=== PATIENT | female | born 1995 | race Caucasian/White ===

== ENCOUNTER 2018-02-09 16:35 | Emergency (ER) | payer OTHER ==
--- NOTE | 2018-02-09 17:14 | PDOC ---
Rapid Medical Evaluation Time Seen by Provider: 02/09/18 17:12 Medical Evaluation: Allergies Allergy/AdvReac Type Severity Reaction Status Date / Time No Known Allergies Allergy Verified 02/09/18 17:12 02/09/18 17:12 I have performed a brief in-person evaluation of this patient. The patient presents with a chief complaint of: + home test with bleeding this am Reports LMP one month ago. , with light lower abdomen and lower back pain Pertinent physical exam findings: NAD skin color good unlabored breathing I have ordered the following: urine hcg, bhcg The patient will proceed to the ED for further evaluation.
[2018-02-09 17:15] VITALS: BP 124/71; PULSE 91; TEMP 98.5; BMI 21.7
[2018-02-09 17:49] LABS: BASO % 0.8 % (0-2.0); HEMATOCRIT 41.2 % (32.4-45.2); HEMOGLOBIN 13.7 GM/dL (10.7-15.3); LYMPH % 33.3 % (8-40); MCH 29.3 pg (25.7-33.7); MCHC 33.3 g/dl (32.0-36.0); MEAN PLT VOLUME 10.2 fl (7.5-11.1); MONO % 9.3 % (3.8-10.2); NEUT % 55.6 % (42.8-82.8); PLATELET COUNT 270 K/MM3 (134-434); RBC 4.68 M/mm3 (3.60-5.2); RDW 13.2 % (11.6-15.6); WHITE BLOOD COUNT 7.9 K/mm3 (4.0-10.0)
--- NOTE | 2018-02-09 19:57 | PDOC ---
History of Present Illness - General History Source: Patient Exam Limitations: No Limitations - History of Present Illness Initial Comments: 02/09/18 19:58 The patient is a 22 year old female with no significant PMH who presents to the emergency department with vaginal bleeding since earlier today. The patient reports that [place] the [place] when she felt herself bleeding. The patient reports that she recently took a positive at home test. The patient reports that this is her 5th ( 5 , para 3) . She reports that she has had 3 c-sections for her births. She states that her youngest child is almost 2 years old. The patient reports that her last menstrual cycle was last month. She states that her menstrual cycles are usually irregular. The patient denies chest pain, shortness of breath, headache and dizziness.She denies fever, chills, nausea, vomit, diarrhea, constipation or urinary symptoms. The patient denies any other complaints. <Ramon Sousa - Last Filed: 02/09/18 19:58> <Allison Toledo - Last Filed: 02/10/18 02:04> - General Chief Complaint: Vaginal Bleeding Stated Complaint: VAGINAL BLEEDING Time Seen by Provider: 02/09/18 17:12 Past History <Ramon Sousa - Last Filed: 02/09/18 19:58> - Past Medical History Asthma: No Cancer: No Cardiac Disorders: No COPD: No Diabetes: No HTN: No Seizures: No Thyroid Disease: No - Reproductive History (#): 5 Para: 3 - Immunization History Immunization Up to Date: Yes - Suicide/Smoking/Psychosocial Hx Smoking Status: No Smoking History: Never smoked Have you smoked in the past 12 months: No Number of Cigarettes Smoked Daily: 0 Hx Alcohol Use: No Drug/Substance Use Hx: No Substance Use Type: None Hx Substance Use Treatment: No <Allison Toledo - Last Filed: 02/10/18 02:04> - Past Medical History Allergies/Adverse Reactions: Allergies Allergy/AdvReac Type Severity Reaction Status Date / Time No Known Allergies Allergy Verified 02/09/18 17:12 Home Medications: Ambulatory Orders NK [No Known Home Medication] 02/09/18 Review of Systems - Review of Systems Able to Perform ROS?: Yes Comments:: 02/09/18 19:59 CONSTITUTIONAL: Absent: fever, chills, diaphoresis, generalized weakness, malaise, loss of appetite HEENT: Absent: rhinorrhea, nasal congestion, throat pain, throat swelling, difficulty swallowing, mouth swelling, ear pain, eye pain, visual Changes CARDIOVASCULAR: Absent: chest pain, syncope, palpitations, irregular heart rate, lightheadedness , peripheral edema RESPIRATORY: Absent: cough, shortness of breath, dyspnea with exertion, orthopnea, wheezing, stridor, hemoptysis GASTROINTESTINAL: Absent: abdominal pain, abdominal distension, nausea, vomiting, diarrhea, constipation, melena, hematochezia GENITOURINARY: present(+) vaginal bleeding. Absent: dysuria, frequency, urgency, hesitancy, hematuria, flank pain, genital pain MUSCULOSKELETAL: Absent: myalgia, arthralgia, joint swelling SKIN: Absent: rash, itching, pallor HEMATOLOGIC/IMMUNOLOGIC: Absent: easy bleeding, easy bruising, lymphadenopathy, frequent infections ENDOCRINE: Absent: unexplained weight gain, unexplained weight loss, heat intolerance, cold intolerance NEUROLOGIC: Absent: headache, focal weakness or paresthesias, dizziness, unsteady gait, seizure, mental status changes, bladder or bowel incontinence PSYCHIATRIC: Absent: anxiety, depression, suicidal or homicidal ideation, hallucinations. <Ramon Sousa - Last Filed: 02/09/18 19:58> *Physical Exam - Vital Signs Last Vital Signs Temp Pulse Resp BP Pulse Ox 98.5 F 91 H 19 124/71 100 02/09/18 17:12 02/09/18 17:12 02/09/18 17:12 02/09/18 17:12 02/09/18 17:12 - Physical Exam Comments: 02/09/18 19:59 GENERAL: Well developed, well nourished. Awake and alert. No acute distress. HEENT: Normocephalic, atraumatic. PERRLA, EOMI. No conjunctival pallor. Sclera are non- icteric. Moist mucous membranes. Oropharynx is clear. NECK: Supple. Full ROM. No JVD. Carotid pulses 2+ and symmetric, without bruits. No thyromegaly. No lymphadenopathy. CARDIOVASCULAR: Regular rate and rhythm. No murmurs, rubs, or gallops. Distal pulses are 2+ and symmetric. PULMONARY: No evidence of respiratory distress. Lungs clear to auscultation bilaterally. No wheezing, rales or rhonchi. ABDOMINAL: Soft. Non-tender. Non-distended. No rebound or guarding. No organomegaly. Normoactive bowel sounds. MUSCULOSKELETAL Normal range of motion at all joints. No bony deformities or tenderness. No CVA tenderness. EXTREMITIES: No cyanosis. No clubbing. No edema. No calf tenderness. SKIN: Warm and dry. Normal capillary refill. No rashes. No jaundice. NEUROLOGICAL: Alert, awake, appropriate. Cranial nerves 2-12 intact. No deficits to light touch and temperature in face, upper extremities and lower extremities. No motor deficits in the in face, upper extremities and lower extremities. Normoreflexic in the upper and lower extremities. Normal speech. Toes are down- going bilaterally. Gait is normal without ataxia. PSYCHIATRIC: Cooperative. Good eye contact. Appropriate mood and affect. <Ramon Sousa - Last Filed: 02/09/18 19:58> - Vital Signs Last Vital Signs Temp Pulse Resp BP Pulse Ox 98.5 F 91 H 19 124/71 100 02/09/18 17:12 02/09/18 17:12 02/09/18 17:12 02/09/18 17:12 02/09/18 17:12 <Allison Toledo - Last Filed: 02/10/18 02:04> ED Treatment Course - LABORATORY CBC & Chemistry Diagram: 02/09/18 17:39 - ADDITIONAL ORDERS Additional order review: Laboratory Results 02/09/18 02/09/18 02/09/18 17:39 17:39 17:39 Beta HCG, Quant 49.0 Urine HCG, Qual Positive Blood Type O POSITIVE Antibody Screen Negative 02/09/18 17:39 RBC 4.68 D MCV 88.0 MCHC 33.3 RDW 13.2 MPV 10.2 Neutrophils % 55.6 D Lymphocytes % 33.3 D Monocytes % 9.3 Eosinophils % 1.0 D Basophils % 0.8 <Ramon Sousa - Last Filed: 02/09/18 19:58> - LABORATORY CBC & Chemistry Diagram: 02/09/18 17:39 - ADDITIONAL ORDERS Additional order review: Laboratory Results 02/09/18 02/09/18 02/09/18 17:39 17:39 17:39 Beta HCG, Quant 49.0 Urine HCG, Qual Positive Blood Type O POSITIVE Antibody Screen Negative 02/09/18 17:39 RBC 4.68 D MCV 88.0 MCHC 33.3 RDW 13.2 MPV 10.2 Neutrophils % 55.6 D Lymphocytes % 33.3 D Monocytes % 9.3 Eosinophils % 1.0 D Basophils % 0.8 - RADIOLOGY Radiology Studies Ordered: Category Date Time Status TRANSVAGINAL US PREG [US] Stat Ultrasound 02/09/18 18:19 Completed <Allison Toledo - Last Filed: 02/10/18 02:04> Medical Decision Making - Medical Decision Making 02/10/18 02:04 Beta-hCG was only 49 transvaginal ultrasound only showed thickened endometrium. Patient however has a follow-up appointment with her CUSTOMER MANAGEMENT SPECIALIST this week and will have repeat beta hCG at that time <Allison Toledo - Last Filed: 02/10/18 02:04> *DC/Admit/Observation/Transfer - Attestations Scribe Attestion: 02/09/18 19:59 Documentation prepared by Ramon Sousa, acting as medical screener for Allison Toledo MD. <Ramon Sousa - Last Filed: 02/09/18 19:58> <Allison Toledo - Last Filed: 02/10/18 02:04> Diagnosis at time of Disposition: Threatened - Discharge Dispostion Disposition: HOME Condition at time of disposition: Stable - Referrals Referrals: Sukhwinder Aggarwal MD [Staff Physician] - - Patient Instructions Printed Discharge Instructions: DI for Vaginal Bleeding During Additional Instructions: keep your appointment with your tester/lift trucker
== END 2018-02-09 20:24 | disposition home or self-care (01) ==
LOC: JER 16:35
DX: O26.891 Other specified pregnancy related conditions, first trimester (principal); O20.0 Threatened abortion; Z3A.00 Weeks of gestation of pregnancy not specified
CPT/HCPCS: 36415; 76817-TC; 84702; 84703; 85025; 86850; 86900; 86901; 99283-25

== ENCOUNTER 2019-07-01 09:03 | Emergency (ER) | payer OTHER ==
[2019-07-01 09:18] VITALS: BMI 24.9
--- NOTE | 2019-07-01 09:41 | PDOC ---
History of Present Illness - General Chief Complaint: Pain, Acute Stated Complaint: STOMACH PAIN Time Seen by Provider: 07/01/19 09:36 History Source: Patient Exam Limitations: No Limitations - History of Present Illness Initial Comments: 07/01/19 09:47 Ms Sales is a 24 yo F who presents to the ER with a complaint of abdominal pain Pt reports that she began feeling ill last night, after dinner time ( approximately 9pm) She was in so much pain that she was unable to sleep last night Pain is described as crampiness, located through out the lower abdomen with radiation to the back, pain is 9/10 Pt denies fevers or chills Pt has noted nausea, no vomiting Pt had a single episode of diarrhea this morning Passing flatus Denies dysuria or hematuria Has noted scant vaginal bleeding Pt is currently sexually active, last time was 1 week ago Pt is currently NOT breast feeding PMH: denies PSH: C section MEDS: denies ALL: NKDA SOCIAL: denies alcohol, drug, cigarette use Review of Systems Constitutional: Fatigue, No: Anorexia, Chills/Rigor, Fever, Night Sweats Eyes: No: Blurry Vision, Diplopia, Loss of Vision, Photophobia ENT: No: Nasal Discharge, Oral Ulcers, Sinus Pain, Sore Throat, Tinnitus Cardiac: No: Chest Pain, Lower Extremity Edema, Orthopnea Respiratory: No: Cough, Hemoptysis, Pleuritic Pain, Shortness of Breath, Sputum Gastrointestinal: Yes: nausea, abdominal pain, one episode of diarrhea No: vomiting Genitourinary: No: Dysuria, Frequency, Hematuria, Urgency Skin: No: Pruritis, Rash Endocrine: No: Change in skin/hair (Bruise on the right of), Loss of Energy, Weight Change Musculoskeletal: No: Arthralgias, Back Pain, Myalgias Neurological: No: Confusion, Dizziness, Numbness of Extremities, Headache, Paresthesias, Vertigo Physical Examination General Appearance: NAD, Appears Comfortable Body Habitus: Normal Vital Signs: HR:93, BP: 106/62, Temp 98.8 Eyes: No: Discharge, Icteric, Pale, Injected, PERRL, EOMI ENT: No: Facial Lymphadenopathy, Sinus Tenderness, Discharge, Nasal Flaring Oropharynx: Mucosa Moist Neck: Supple, No JVD, no Lymphadenopathy Respiratory: CTA B/L, Decreased Breath Sounds Cardiac: RRR, S1/S2, No Murmur, Rub, Gallop Gastrointestinal: Soft, exquisitely tender in the lower abdomen, left and right quadrants, (+) epigastric tenderness, no involuntary guarding or rebound [employer]PER[employer]OR MILL: nml external genitalia, (+) dark blood in the vaginal vault, (+) CMT, + bilateral adnexal tenderness Musculoskeletal: Right Upper Extremity: 5/5 Left Upper Extremity: 5/5 Right Lower Extremity: 4/5 Left Lower Extremity: 4/5 Normal Tone: RUE, RLE, LUE, LLE Back: No CVA Tenderness, mid lower lumbar tenderness Skin: Normal, Warm Neurologic: Mental Status: A&O x 2 Cranial Nerves: II-XII Grossly Intact Babinski: Bilateral-Downgoing Sensation: Intact 07/01/19 10:05 Is this a multiple visit Asthma Patient?: No Past History - Past Medical History Allergies/Adverse Reactions: Allergies Allergy/AdvReac Type Severity Reaction Status Date / Time No Known Allergies Allergy Verified 07/01/19 09:15 Home Medications: Ambulatory Orders Cefpodoxime Proxetil [Vantin -] 100 mg PO BID #20 tablet 07/01/19 Asthma: No Cancer: No Cardiac Disorders: No COPD: No Diabetes: No HTN: No Seizures: No Thyroid Disease: No - Reproductive History (#): 5 Para: 3 - Immunization History Immunization Up to Date: Yes - Psycho Social/Smoking Cessation Hx Smoking Status: No Smoking History: Never smoked Have you smoked in the past 12 months: No Number of Cigarettes Smoked Daily: 0 Hx Alcohol Use: No Drug/Substance Use Hx: No Substance Use Type: None Hx Substance Use Treatment: No *Physical Exam - Vital Signs Last Vital Signs Temp Pulse Resp BP Pulse Ox 98.8 F 93 H 18 106/62 99 07/01/19 09:16 07/01/19 09:16 07/01/19 09:16 07/01/19 09:16 07/01/19 09:16 ED Treatment Course - LABORATORY CBC & Chemistry Diagram: 07/01/19 10:30 07/01/19 10:30 Medical Decision Making - Medical Decision Making 07/01/19 10:20 24 yo F presenting with lower abdominal pain and scant vaginal bleeding Post 4 months No discharge noted on examination 1) Menses 2) unlikely retained products (given pt is 4 months post ) 3) ? PID (no fevers) 4) Appendicitis vs Diverticulitis Will do: Labs US consider CT IVF/Reglan/Tylenol Re Assess 07/01/19 11:12 Laboratory Tests 07/01/19 07/01/19 07/01/19 10:30 10:30 10:45 WBC 16.3 H Hgb 15.2 Hct 44.3 Plt Count 276 Serum , Qual Negative Urine Blood 2+ H Urine Nitrite Positive H Ur Leukocyte Esterase 1+ H Urine WBC (Auto) 3 Urine RBC (Auto) 4 U Epithel Cells (Auto) 1.9 Urine Bacteria (Auto) 4237.0 07/01/19 11:58 Laboratory Tests 07/01/19 10:30 Sodium 139 Potassium 4.1 Chloride 106 Carbon Dioxide 24 BUN 9.2 Creatinine 0.7 Random Glucose 77 07/01/19 12:57 ABD US nml 07/01/19 13:34 TVUS - IUD in place, trace endometrial fluid, nml flow to ovaries Pt unable to stay in the ER for any additional testing Pt states she feels better after tylenol ? beginning of Menses ? UTI Will start Cefpodoxime for UTI Will ask pt to follow up within 2-3 days with dicer machine operator or pmd Discharge - Discharge Information Problems reviewed: Yes Clinical Impression/Diagnosis: UTI (urinary tract infection) Qualifiers: Urinary tract infection type: acute cystitis Hematuria presence: without hematuria Qualified Code(s): N30.00 - Acute cystitis without hematuria Condition: Stable Disposition: HOME - Admission No - Additional Discharge Information Prescriptions: Cefpodoxime Proxetil [Vantin -] 100 mg PO BID #20 tablet Prescription Drug Monitoring Program (I-STOP) results: I-STOP not reviewed - Follow up/Referral Referrals: Young Haji MD [Staff Physician] - - Patient Discharge Instructions Patient Printed Discharge Instructions: DI for Urinary Tract Infection (UTI) Additional Instructions: Ms. Sales thank you for coming in to the ER today Please be sure to take the antibiotics I have prescribed If the pharmacy can not fill your prescription, please have them call the ER I can change it Please monitor yourself for fevers by taking your temperature Please Please follow up with a primary care physician within 2-3 days IF you continue to have pain, please RETURN to the ER You would need a CT scan We have sent a urine culture for you If your culture grows something not covered by your antibiotic, we will call you - Post Discharge Activity Work/Back to School Note: Back to Work
[2019-07-01] MEDS ORDERED: SODIUM CHLORIDE 1,000 ML IV STA (09:52)
[2019-07-01] MEDS ORDERED: METOCLOPRAMIDE HCL INJECTION 10 MG/2 ML VIAL IVPUSH ONE (09:52)
[2019-07-01] MEDS ORDERED: ACETAMINOPHEN 1000 MG/100 ML VIAL (NON FORMULARY) IVPB ONE (09:52)
[2019-07-01] MEDS ORDERED: METOCLOPRAMIDE HCL INJECTION 10 MG/2 ML VIAL ONE ×2 (09:59→10:04)
[2019-07-01] MEDS ORDERED: ACETAMINOPHEN INJECTION 100 ML IVPB ONE ×2 (10:00→10:04)
[2019-07-01 10:51] LABS: BASO % 0.3 % (0-2.0); EOS % 0.8 % (0-4.5); HEMATOCRIT 44.3 % (32.4-45.2); HEMOGLOBIN 15.2 GM/dL (10.7-15.3); LYMPH % 12.2 % (8-40); MCH 30.4 pg (25.7-33.7); MCHC 34.2 g/dl (32.0-36.0); MEAN CELL VOLUME 88.8 fl (80-96); MEAN PLT VOLUME 9.8 fl (7.5-11.1); MONO % 6.9 % (3.8-10.2); NEUT % 79.8 % (42.8-82.8); PLATELET COUNT 276 K/MM3 (134-434); RBC 4.99 M/mm3 (3.60-5.2); RDW 13.6 % (11.6-15.6); WHITE BLOOD COUNT 16.3 K/mm3 (4.0-10.0)
[2019-07-01 11:03] LABS: EPI CELLS 1.9 /HPF (0-5/HPF); HYALINE CASTS 4 /lpf (0-8); PH,URINE 5.5 (5.0-8.0); URINE APPEARANCE CLEAR; URINE BILIRUBIN NEGATIVE (NEGATIVE); URINE COLOR YELLOW; URINE GLUCOSE (UA) NEGATIVE (NEGATIVE); URINE KETONE NEGATIVE (NEGATIVE); URINE LEUK ESTERASE 1+ (NEGATIVE); URINE NITRITE POSITIVE (NEGATIVE); URINE PROTEIN NEGATIVE (NEGATIVE); URINE RBC 4 /hpf (0-4); URINE UROBILINOGEN 0.2 mg/dL (0.2-1.0); URINE WBC 3 /hpf (0-5)
[2019-07-01 11:17] LABS: ALBUMIN 4.5 g/dl (3.4-5.0); BILIRUBIN,TOTAL 1.2 mg/dL (0.2-1); BLOOD UREA NITROGEN 9.2 mg/dL (7-18); CALCIUM 9.8 mg/dL (8.5-10.1); CREATININE 0.7 mg/dL (0.55-1.3); POTASSIUM 4.1 mmol/L (3.5-5.1); TOT PROT 9.1 g/dl (6.4-8.2)
[2019-07-01 13:09] VITALS: BP 114/73; PULSE 78; TEMP 98.1
== END 2019-07-01 13:59 | disposition home or self-care (01) ==
LOC: JER 09:03
PROC: 3E033NZ Introduction of Analgesics, Hypnotics, Sedatives into Peripheral Vein, Percutaneous Approach (ICD-10-PCS; principal; 2019-07-01)
PROC: 3E033GC Introduction of Other Therapeutic Substance into Peripheral Vein, Percutaneous Approach (ICD-10-PCS; 2019-07-01)
PROC: 3E0337Z Introduction of Electrolytic and Water Balance Substance into Peripheral Vein, Percutaneous Approach (ICD-10-PCS; 2019-07-01)
DX: N30.00 Acute cystitis without hematuria (principal)
CPT/HCPCS: 36415; 76705-TC; 76830-TC; 80053; 81003; 82150; 83690; 84703; 85025; 87086; 87186; 87491; 87591; 99283-25; J0131; J7030